=== PATIENT | female | born 2000 | race Caucasian/White ===

== ENCOUNTER 2024-10-29 03:58 | Emergency (ER) | payer SELFPAY ==
[~2024-10-29] VITALS: Ht 165.1 cm; Wt 54.0 kg
[2024-10-29 04:11] VITALS: O2SAT 98
[2024-10-29] MEDS: IBUPROFEN 600MG TABLET PO ONE (05:35)
[2024-10-29] MEDS ORDERED: VALA10002 MT (05:43)
[2024-10-29] MEDS ORDERED: SULF1TAB48 MT (05:43)
[2024-10-29] MEDS: FLUORESCEIN SODIUM 1MG/STRIP LEFTEYE ONE (05:52)
[2024-10-29 06:03] VITALS: BP 124/82; PULSE 95; RESP 14; TEMP 36.8; O2SAT 96
== END 2024-10-29 06:06 | disposition home or self-care (01) ==
LOC: ER 03:58
DX: B02.9 Zoster without complications (principal); K90.0 Celiac disease; Z79.899 Other long term (current) drug therapy
CPT/HCPCS: 81025; 99283